=== PATIENT | female | born 1990 | race Caucasian/White ===

== ENCOUNTER 2016-04-11 10:54 | Emergency (ER) | payer OTHER ==
[2016-04-11 11:28] VITALS: BP 112/79
--- NOTE | 2016-04-11 14:02 | UC ---
Abdominal Pain Female HPI - HPI Summary HPI Summary: PT WITH 4 DAYS OF N/V/D. NO FEVER. NO RECENT TRAVEL. APPETITE DECREASED. OF NOTE MENSES STARTED 4 DAYS AGO WELL. THIS WAS 9 DAYS LATE. STATES THERE IS A FUNNY ODOR AND WONDERS IF SHE HAS SOME VAGINAL DISCHARGE. PT TOOK 2 HOME TESTS WHICH WERE NEGATIVE. IN A MONOGAMOUS RELATIONSHIP WITH . IS NOT CONCERNED ABOUT STDs. - History of Current Complaint Chief Complaint: UCGU Stated Complaint: VOMITING, ACHES, AND DIARRHEA Time Seen by Provider: 04/11/16 13:28 Hx Obtained From: Patient Hx Last Menstrual Period: 03/11/16 Onset/Duration: Gradual Onset, Lasting Days, Still Present Timing: Constant Severity Initially: Moderate Severity Currently: Moderate Pain Intensity: 0 Pain Scale Used: 0-10 Numeric Location: Diffuse Radiates: No Character: Cramping Aggravating Factor(s): Food Alleviating Factor(s): Nothing Associated Signs and Symptoms: Positive: Decreased Appetite, Vaginal Discharge, Nausea, Vomiting, Diarrhea. Negative: Fever, Back Pain, Constipation, Blood in Stool Allergies/Adverse Reactions: Allergies Allergy/AdvReac Type Severity Reaction Status Date / Time Latex Allergy Intermediate Hives Verified 04/11/16 11:20 Codeine Allergy Unknown Verified 01/04/12 14:22 Reaction Details Penicillins [PCN] Allergy Hives Verified 01/04/12 14:22 PMH/Surg Hx/FS Hx/Imm Hx Previously Healthy: Yes - Surgical History Surgical History: Yes Surgery Procedure, Year, and Place: - Family History Known Family History: Negative: Blood Disorder - Social History Alcohol Use: Rare Substance Use Type: None Smoking Status (MU): Current Every Day Smoker Type: Cigarettes Amount Used/How Often: 1/2 PPD Length of Time of Smoking/Using Tobacco: 12 years Have You Smoked in the Last Year: No Review of Systems Constitutional: Negative Respiratory: Negative Cardiovascular: Negative Gastrointestinal: Abdominal Pain, Vomiting, Diarrhea, Other - NAUSEA All Other Systems Reviewed And Are Negative: Yes Physical Exam Triage Information Reviewed: Yes Appearance: Well-Appearing, No Pain Distress, Well-Nourished Vital Signs: Initial Vital Signs Temp 97.6 F 04/11/16 11:21 Pulse 104 04/11/16 11:21 Resp 18 04/11/16 11:21 BP 112/79 04/11/16 11:21 Pulse Ox 98 04/11/16 11:21 Vital Signs Reviewed: Yes Eyes: Positive: Conjunctiva Clear ENT: Positive: Hearing grossly normal Neck: Positive: Supple Respiratory Exam: Normal Cardiovascular Exam: Normal Abdomen Description: Positive: Nontender, Soft. Negative: CVA Tenderness (R), CVA Tenderness (L), Distended, Guarding Bowel Sounds: Positive: Present Musculoskeletal: Positive: No Edema Neurological: Positive: Alert Psychological: Positive: Age Appropriate Behavior Skin: Negative: rashes Diagnostics - Laboratory Diagnostic Studies Completed/Ordered: URINE NEGATIVE Abd Pain Female Course/Dx - Course Course Of Treatment: PT ACTIVELY BLEEDING DUE TO MENSES. PELVIC EXAM DEFERRED. PT WILL REASSESS FOR VAGINAL DISCHARGE ONCE MENSES IS OVER AND FOLLOW-UP AT THAT TIME IF NEEDED. - Differential Dx/Diagnosis Provider Diagnoses: ACUTE GASTROENTERITIS Discharge - Discharge Plan Condition: Stable Disposition: HOME Prescriptions: Ondansetron ODT TAB* [Zofran Odt TAB*] 4 mg PO Q6H PRN #20 tab.odt PRN Reason: Nausea/Vomiting Patient Education Materials: Gastroenteritis (ED) Referrals: Hiwot Arboleda MD [Primary Care Provider] - If Needed Additional Instructions: ENSURE ADEQUATE HYDRATION. CLEAR LIQUIDS, BLAND DIET. AVOID CAFFEINE, DAIRY, GREASY, SPICY FOODS. ONCE YOU ARE TOLERATING CLEAR LIQUIDS YOU CAN ADVANCE TO SIMPLE, BLAND FOODS. GO TO THE ER WITHOUT FAIL IF YOU ARE UNABLE TO KEEP ANYTHING DOWN. FOLLOW-UP WITH YOUR PCP. ONCE YOUR PERIOD IS OVER YOU CAN REASSESS WHETHER OR NOT YOU HAVE ANY VAGINAL DISCHARGE AND SEEK EVALUATION AT THAT TIME IF NEEDED.
== END 2016-04-11 14:27 | disposition home or self-care (01) ==
LOC: UCEAST 10:54
DX: K52.9 Noninfective gastroenteritis and colitis, unspecified (principal); N89.8 Other specified noninflammatory disorders of vagina; Z32.02 Encounter for pregnancy test, result negative; Z88.5 Allergy status to narcotic agent; Z88.0 Allergy status to penicillin; F17.210 Nicotine dependence, cigarettes, uncomplicated
CPT/HCPCS: 81025; 99212; G0463

== ENCOUNTER 2016-10-24 10:11 | Emergency (ER) | payer OTHER ==
[2016-10-24 10:19] VITALS: BP 111/71
--- NOTE | 2016-10-24 10:54 | UC ---
Throat Pain/Nasal Cruz HPI - HPI Summary HPI Summary: 26 Y/O female being seen for complaint of sore throat, fever, chills x 2 days. Today presents afebrile, C/O pain in throat, nasal congestion and pressure in R ear. Denies nausea and vomiting. Reports good relief with OTC medications. - History of Current Complaint Chief Complaint: UCGeneralIllness Stated Complaint: THROAT PAIN Time Seen by Provider: 10/24/16 10:42 Hx Obtained From: Patient Hx Last Menstrual Period: September 2016 ?: No Onset/Duration: Sudden Onset Severity: Moderate Pain Scale Used: 0-10 Numeric Associated Signs & Symptoms: Positive: Negative - Allergies/Home Medications Allergies/Adverse Reactions: Allergies Allergy/AdvReac Type Severity Reaction Status Date / Time Latex Allergy Intermediate Hives Verified 04/11/16 11:20 Codeine Allergy Unknown Verified 01/04/12 14:22 Reaction Details Penicillins [PCN] Allergy Hives Verified 01/04/12 14:22 Home Medications: Home Medications Vitamin B12 10/24/16 [History] PMH/Surg Hx/FS Hx/Imm Hx Previously Healthy: Yes - Surgical History Surgical History: Yes Surgery Procedure, Year, and Place: - Family History Known Family History: Positive: None Negative: Blood Disorder Family History: R & n/C - Social History Alcohol Use: Occasionally Substance Use Type: None Smoking Status (MU): Current Every Day Smoker Type: Cigarettes Amount Used/How Often: 1/2 PPD Length of Time of Smoking/Using Tobacco: 13 Have You Smoked in the Last Year: No Review of Systems Constitutional: Negative Skin: Negative Eyes: Negative ENT: Sore Throat, Sinus Congestion Respiratory: Negative Cardiovascular: Negative Gastrointestinal: Negative Genitourinary: Negative Motor: Negative Neurovascular: Negative Musculoskeletal: Negative Neurological: Negative Psychological: Negative All Other Systems Reviewed And Are Negative: Yes Physical Exam Triage Information Reviewed: Yes Appearance: Well-Appearing Vital Signs: Initial Vital Signs Temp 98.2 F 10/24/16 10:13 Pulse 93 10/24/16 10:13 Resp 18 10/24/16 10:13 BP 111/71 10/24/16 10:13 Pulse Ox 99 10/24/16 10:13 Eye Exam: Normal Eyes: Positive: Conjunctiva Clear ENT Exam: Normal ENT: Positive: TMs normal, Tonsillar swelling Neck exam: Normal Neck: Positive: Supple Respiratory Exam: Normal Respiratory: Positive: Normal breath sounds Cardiovascular Exam: Normal Cardiovascular: Positive: RRR Abdominal Exam: Normal Abdomen Description: Positive: Nontender Bowel Sounds: Positive: Present Musculoskeletal Exam: Normal Musculoskeletal: Positive: ROM Intact Neurological Exam: Normal Neurological: Positive: Alert Psychological Exam: Normal Skin Exam: Normal Throat Pain/Nasal Course/Dx - Differential Dx/Diagnosis Differential Diagnosis/HQI/PQRI: Pharyngitis, Tonsillitis Provider Diagnoses: Tonsillitis Discharge - Discharge Plan Condition: Stable Disposition: HOME Patient Education Materials: Tonsillitis (ED) Additional Instructions: Your rapid strep test was negative. Continue to take ibuprofen as needed for pain. Do not exceed 600mg every 8 hours. Return to urgent care as needed for worsening pain or if symptoms do not resolve over the next week.
== END 2016-10-24 11:56 | disposition home or self-care (01) ==
LOC: UCEAST 10:11
DX: J03.90 Acute tonsillitis, unspecified (principal); F17.210 Nicotine dependence, cigarettes, uncomplicated
CPT/HCPCS: 87651; 99211; G0463

== ENCOUNTER 2017-07-29 17:40 | Emergency (ER) | payer OTHER ==
[2017-07-29 17:49] VITALS: BP 118/84
--- NOTE | 2017-07-29 19:20 | UC ---
Back Pain HPI - HPI Summary HPI Summary: Patient is a 27-year-old female presenting to the with a chief complaint of right lower back pain. Denies any pain to the spine. Denies any bladder or bowel dysfunction. She denies any fevers, sweats, chills, UTI symptoms including hematuria. Symptoms have been present and intermittent 2 years. She states when she stretches her back or uses heat, the pain improves. She has never used muscle relaxers for relief. Symptoms are worse after working, and better with rest. - History of Current Complaint Chief Complaint: UCBackPain Stated Complaint: BACK SPASMS Time Seen by Provider: 07/29/17 18:01 Hx Obtained From: Patient Hx Last Menstrual Period: 28 days ago ?: No Onset/Duration: Sudden Onset Timing: Constant Severity Initially: Moderate Severity Currently: Moderate Pain Intensity: 2 Pain Scale Used: 0-10 Numeric Back Pain: Is Discrete @ - R lower back Aggravating Factor(s): Lifting, Bending Alleviating Factor(s): Rest, Position Associated Signs And Symptoms: Positive: Negative - Risk Factors AAA Risk Factors: Negative TAD Risk Factors: Negative Cauda Equina Risk Factors: Negative Epidural Abscess Risk Factors: Negative - Allergies/Home Medications Allergies/Adverse Reactions: Allergies Allergy/AdvReac Type Severity Reaction Status Date / Time codeine Allergy Unknown Verified 07/29/17 17:50 Reaction Details latex Allergy Hives Verified 07/29/17 17:50 Penicillins Allergy Hives Verified 07/29/17 17:50 PMH/Surg Hx/FS Hx/Imm Hx Previously Healthy: Yes - Surgical History Surgical History: Yes Surgery Procedure, Year, and Place: - Family History Known Family History: Positive: None Negative: Blood Disorder Family History: R & n/C - Social History Occupation: Employed Full-time Lives: With Family Alcohol Use: Occasionally Substance Use Type: None Smoking Status (MU): Current Every Day Smoker Type: Cigarettes Amount Used/How Often: 1/2 PPD Length of Time of Smoking/Using Tobacco: 13 Have You Smoked in the Last Year: No Review of Systems Constitutional: Negative Skin: Negative Respiratory: Negative Cardiovascular: Negative Motor: Negative Neurovascular: Negative Musculoskeletal: Arthralgia - R lower back Neurological: Negative Is Patient Immunocompromised?: No All Other Systems Reviewed And Are Negative: Yes Physical Exam Triage Information Reviewed: Yes Appearance: Well-Appearing, No Pain Distress, Well-Nourished Vital Signs: Initial Vital Signs Temp 98.5 F 07/29/17 17:46 Pulse 92 07/29/17 17:46 Resp 18 07/29/17 17:46 BP 118/84 07/29/17 17:46 Pulse Ox 99 07/29/17 17:46 Vital Signs Reviewed: Yes Eye Exam: Normal Neck exam: Normal Neck: Positive: Supple Respiratory: Positive: Normal breath sounds Cardiovascular Exam: Normal Musculoskeletal: Positive: Strength Intact, ROM Intact, Other: - pain to the R lower back Neurological: Positive: Alert Psychological: Positive: Normal Response To Family Skin Exam: Normal Back Pain Course/Dx - Course Course Of Treatment: Discussed treatment Options with the patient. UA obtained which shows no evidence of UTI. I discussed this is likely a muscle spasm due to the location of the pain as well as improvement upon stretching. She agrees with this plan. I have given her Flexeril for relief. She is encouraged moist heat and ibuprofen. - Differential Dx/Diagnosis Provider Diagnoses: Muscle spasms Discharge - Sign-Out/Discharge Documenting (check all that apply): Discharge/Admit/Transfer - Discharge Plan Condition: Stable Disposition: HOME Prescriptions: Cyclobenzaprine TAB* [Flexeril TAB*] 10 mg PO BID PRN #14 tab PRN Reason: Spasms Patient Education Materials: Muscle Spasm (ED), Lower Back Exercises (ED) Referrals: No Primary Care Phys,NOPCP [Primary Care Provider] - Additional Instructions: Flexeril up to twice daily for muscle spasms Moist heat to the area several times per day Stretching will help - Billing Disposition and Condition Condition: STABLE Disposition: HOME
== END 2017-07-29 18:31 | disposition home or self-care (01) ==
LOC: UCEAST 17:40
DX: M62.838 Other muscle spasm (principal); Z88.5 Allergy status to narcotic agent; Z91.040 Latex allergy status; Z88.0 Allergy status to penicillin; F17.210 Nicotine dependence, cigarettes, uncomplicated
CPT/HCPCS: 81003; 99212; G0463

== ENCOUNTER 2019-05-20 12:49 | Emergency (ER) | payer OTHER ==
[2019-05-20] MEDS ORDERED: Ondansetron INJ* 2 MG/ML VIAL IV ONE (13:26)
[2019-05-20] MEDS ORDERED: Ketorolac INJ* 30 MG/ML 1 ML VIAL IV ONE (13:26)
[2019-05-20] MEDS ORDERED: NS 0.9% 1000 ML** 1,000 ML IV ONE (13:27)
[2019-05-20 13:52] LABS: ABS Eosinophils 0.1 10^3/ul (0-0.6); ABS Lymphocytes 2.8 10^3/ul (1.0-4.8); ABS Monocytes 0.4 10^3/ul (0-0.8); ABS Neutrophils 7.4 10^3/ul (1.5-7.7); Eosinophil % 0.9 %; Hematocrit 37 % (35-47); Hemoglobin 12.5 g/dL (12.0-16.0); Lymphocyte % 26.3 %; Mean Corpuscular HGB Conc 34 g/dL (31-36); Mean Corpuscular Hemoglobin 29 pg (27-31); Mean Corpuscular Volume 86 fL (80-97); Mean Platelet Volume 8.4 fL (7.4-10.4); Platelet Count 250 10^3/uL (150-450); Red Blood Count 4.25 10^6 /uL (3.70-4.87); Red Cell Distribution Width 14 % (10-15); White Blood Count 10.7 10^3/uL (3.5-10.8)
[2019-05-20 14:12] LABS: ALT 21 U/L (7-52); AST 17 U/L (13-39); Albumin 4.2 g/dL (3.2-5.2); Albumin/Globulin Ratio 1.6 (1-3); Alkaline Phosphatase 50 U/L (34-104); Anion Gap 7 mmol/L (2-11); Blood Urea Nitrogen 14 mg/dL (6-24); C Reactive Protein 5.69 mg/L (<8.01); CO2 Carbon Dioxide 22 mmol/L (22-32); Calcium 9.2 mg/dL (8.6-10.3); Chloride 107 mmol/L (101-111); EGFR African American 118.9 (>60); EGFR Non-African American 98.3 (>60); Globulin 2.6 g/dL (2-4); Glucose 85 mg/dL (70-100); Magnesium 1.9 mg/dL (1.9-2.7); Potassium 4.2 mmol/L (3.5-5.0); Sodium 136 mmol/L (135-145); Total Protein 6.8 g/dL (6.4-8.9)
[2019-05-20 14:45] VITALS: BP 117/73
--- NOTE | 2019-05-20 15:16 | ED ---
Back Pain - HPI Summary HPI Summary: This patient is a 29-year-old female who is otherwise healthy presenting to the ED with right-sided flank pain radiating to the right lower quadrant. Patient states symptoms have been severe over the past 5 days. Denies any gross hematuria or other UTI symptoms. She states while this has been severe recently , she has had the symptoms intermittently for approximately 1-2 months. She has never injured her back in the past. Denies any pain directly over the spine. Denies any pain to the abdomen otherwise. She did endorses one episode of nausea and vomiting this afternoon which she attributed to pain. Pain is currently rated a 5/10, previously a 9/10. She has not taken any medication at home for relief. She denies any fevers, sweats , chills. She does have a history of back pain and back spasms. - History of Current Complaint Chief Complaint: EDFlankPain Stated Complaint: BACK/FLANK PAIN PER PT Time Seen by Provider: 05/20/19 12:55 Hx Obtained From: Patient Hx Last Menstrual Period: 28 days ago Onset/Duration: Sudden Onset Onset/Duration: Started Hours Ago Timing: Constant Back Pain Location: Is Discrete @ - right flank pain with radiation of pain to the RLQ Severity Initially: Severe Severity Currently: Moderate Pain Intensity: 2 Pain Scale Used: 0-10 Numeric Character: Aching Alleviating Symptom(s): Rest, Position Associated Signs And Symptoms: Positive: Flank Pain. Negative: Swelling, Weakness, Numbness, Bladder Incontinence, Bowel Incontinence - Risk Factors AAA Risk Factors: Negative TAD Risk Factors: Negative Cauda Equina Risk Factors: Negative - Allergies/Home Medications Allergies/Adverse Reactions: Allergies Allergy/AdvReac Type Severity Reaction Status Date / Time codeine Allergy Unknown Verified 05/20/19 12:54 Reaction Details latex Allergy Hives Verified 05/20/19 12:54 Penicillins Allergy Hives Verified 05/20/19 12:54 Home Medications: Home Medications Cyclobenzaprine TAB* [Flexeril TAB*] 10 mg PO BID PRN #14 tab 07/29/17 [Rx] Ketorolac TAB * [Toradol TAB *] 10 mg PO Q6H #16 tab 05/20/19 [Rx] PMH/Surg Hx/FS Hx/Imm Hx Previously Healthy: Yes Endocrine/Hematology History: Denies: Hx Diabetes, Hx Thyroid Disease Cardiovascular History: Denies: Hx Hypertension Respiratory History: Denies: Hx Asthma, Hx Chronic Obstructive Pulmonary Disease (COPD) GI History: Denies: Hx Ulcer Musculoskeletal History: Reports: Hx Arthritis - left knee - Surgical History Surgery Procedure, Year, and Place: - Immunization History Hx Pertussis Vaccination: No Immunizations Up to Date: Yes Infectious Disease History: No Infectious Disease History: Denies: Hx Hepatitis, Hx Human Immunodeficiency Virus (HIV), History Other Infectious Disease, Traveled Outside the [place] in Last 30 Days - Family History Known Family History: Positive: None Negative: Blood Disorder Family History: R & n/C - Social History Occupation: Employed Full-time Lives: With Family Alcohol Use: Occasionally Hx Substance Use: No Substance Use Type: Reports: None Hx Tobacco Use: Yes Smoking Status (MU): Current Every Day Smoker Type: Cigarettes Amount Used/How Often: 1/2 PPD Length of Time of Smoking/Using Tobacco: 13 Have You Smoked in the Last Year: No Review of Systems Negative: Fever, Chills, Fatigue, Skin Diaphoresis Negative: Palpitations, Chest Pain Negative: Shortness Of Breath, Cough Positive: Abdominal Pain, Vomiting, Nausea. Negative: Diarrhea Genitourinary: Negative Positive: no symptoms reported, see HPI Positive: Arthralgia - right flank pain Negative: Rash, Bruising Neurological/Mental Status: Negative All Other Systems Reviewed And Are Negative: Yes Physical Exam Triage Information Reviewed: Yes Vital Signs On Initial Exam: Initial Vitals Temp Pulse Resp BP Pulse Ox 97.3 F 111 16 126/87 100 05/20/19 12:51 05/20/19 12:51 05/20/19 12:51 05/20/19 12:51 05/20/19 12:51 Vital Signs Reviewed: Yes Appearance: Positive: Well-Appearing, Well-Nourished Skin: Positive: Warm, Skin Color Reflects Adequate Perfusion Head/Face: Positive: Normal Head/Face Inspection Eyes: Positive: EOMI, DAVIDA, Conjunctiva Clear Neck: Positive: Supple, No Lymphadenopathy Respiratory/Lung Sounds: Positive: Clear to Auscultation, Breath Sounds Present Cardiovascular: Positive: RRR, Pulses are Symmetrical in both Upper and Lower Extremities Abdomen Description: Positive: CVA Tenderness (R), Other: - RLQ Bowel Sounds: Positive: Present Musculoskeletal: Positive: Normal, Strength/ROM Intact Neurological: Positive: Normal, Sensory/Motor Intact, Speech Normal Psychiatric: Positive: Normal, Affect/Mood Appropriate AVPU Assessment: Alert Procedures - Sedation Patient Received Moderate/Deep Sedation with Procedure: No Diagnostics - Vital Signs Vital Signs Temp Pulse Resp BP Pulse Ox 05/20/19 14:44 98.6 F 61 15 117/73 100 05/20/19 14:11 88 108/83 100 05/20/19 14:02 78 96 05/20/19 13:41 76 125/85 99 05/20/19 13:40 65 99 05/20/19 12:51 97.3 F 111 16 126/87 100 - Laboratory Lab Results: Lab Results 05/20/19 05/20/19 05/20/19 Range/Units 13:45 13:45 13:45 WBC 10.7 (3.5-10.8) 10^3/uL RBC 4.25 (3.70-4.87) 10^6 /uL Hgb 12.5 (12.0-16.0) g/dL Hct 37 (35-47) % MCV 86 (80-97) fL MCH 29 (27-31) pg MCHC 34 (31-36) g/dL RDW 14 (10-15) % Plt Count 250 (150-450) 10^3/uL MPV 8.4 (7.4-10.4) fL Neut % (Auto) 68.9 % Lymph % (Auto) 26.3 % [place] % (Auto) 3.5 % Eos % (Auto) 0.9 % Baso % (Auto) 0.4 % Absolute Neuts (auto) 7.4 (1.5-7.7) 10^3/ul Absolute Lymphs (auto) 2.8 (1.0-4.8) 10^3/ul Absolute Monos (auto) 0.4 (0-0.8) 10^3/ul Absolute Eos (auto) 0.1 (0-0.6) 10^3/ul Absolute Basos (auto) 0.0 (0-0.2) 10^3/ul Absolute Nucleated RBC 0.0 10^3/ul Nucleated RBC % 0.0 Sodium 136 (135-145) mmol/L Potassium 4.2 (3.5-5.0) mmol/L Chloride 107 (101-111) mmol/L Carbon Dioxide 22 (22-32) mmol/L Anion Gap 7 (2-11) mmol/L BUN 14 (6-24) mg/dL Creatinine 0.70 (0.51-0.95) mg/dL Est GFR ( Amer) 118.9 (>60) Est GFR (Non-Af Amer) 98.3 (>60) BUN/Creatinine Ratio 20.0 (8-20) Glucose 85 (70-100) mg/dL Lactic Acid < 0.3 L (0.5-2.0) mmol/L Calcium 9.2 (8.6-10.3) mg/dL Magnesium 1.9 (1.9-2.7) mg/dL Total Bilirubin 0.40 (0.2-1.0) mg/dL AST 17 (13-39) U/L ALT 21 (7-52) U/L Alkaline Phosphatase 50 (34-104) U/L C-Reactive Protein 5.69 (<8.01) mg/L Total Protein 6.8 (6.4-8.9) g/dL Albumin 4.2 (3.2-5.2) g/dL Globulin 2.6 (2-4) g/dL Albumin/Globulin Ratio 1.6 (1-3) Lipase < 10 L (11.0-82.0) U/L Beta HCG, Quant 1.60 mIU/mL Result Diagrams: 05/20/19 13:45 05/20/19 13:45 Lab Statement: Any lab studies that have been ordered have been reviewed, and results considered in the medical decision making process. Back Pain Course/Dx - Course Course Of Treatment: Patient is evaluated for right-sided flank pain radiating to the right lower quadrant. No gross hematuria. On physical examination, patient appears to be in acute distress. Currently rating her symptoms a 5/10. She is declining any opioid pain medication, but willing to take Toradol. Patient is afebrile and vital signs are stable. She is nondiaphoretic and nontoxic in appearing. Lungs CTA, RRR. There is CVA tenderness to the right side, no pain on palpation to the right lower quadrant. Negative Wong's. Negative Rovsing's. No tenderness at McBurney's point. Negative psoas and negative obturators. Currently denying any nausea. Abdominal sounds positive throughout. Labs obtained which are WNL. CT abd/pelvis: IMPRESSION: #. No acute abdominal pelvic pathologic process evident. Negative exam. Patient was given Toradol IV and given fluids. Patient states her symptoms improved. Patient was unable to give a UA she had recently went to the restroom, however she states she is currently on her menses. It was discussed with the patient since the CT was negative for any acute finding, this is likely secondary to her menses versus right-sided muscle strain. As patient is not complaining of any symptoms currently, she states she will hold up with her PCP as needed. Toradol given as prescription. - Diagnoses Differential Diagnosis/HQI/PQRI: Positive: Strain, Sprain, Other - right flank pain, renal colic Provider Diagnoses: Muscle strain Discharge ED - Sign-Out/Discharge Documenting (check all that apply): Patient Departure - Discharge Plan Condition: Good Disposition: HOME Prescriptions: Ketorolac TAB * [Toradol TAB *] 10 mg PO Q6H #16 tab Patient Education Materials: Muscle Strain (ED) Referrals: No Primary Care Phys,NOPCP [Primary Care Provider] - Additional Instructions: Toradol up to four times daily for any pain Moist heat to the area as much as possible Gentle stretches - Billing Disposition and Condition Condition: GOOD Disposition: Home
== END 2019-05-20 14:44 | disposition home or self-care (01) ==
LOC: ED 12:49
DX: S39.011A Strain of muscle, fascia and tendon of abdomen, initial encounter (principal); R10.84 Generalized abdominal pain; F17.210 Nicotine dependence, cigarettes, uncomplicated; Z88.0 Allergy status to penicillin; Z88.6 Allergy status to analgesic agent; Z79.899 Other long term (current) drug therapy
CPT/HCPCS: 36415; 74176; 80053; 83605; 83690; 83735; 84702; 85025; 86140; 96361; 96374; 96375; 99282; J1885; J2405